=== PATIENT | male | born 1945 | race Caucasian/White ===

== ENCOUNTER 2017-10-25 16:40 | Emergency (ER) | payer MEDICARE, OTHER, SELFPAY ==
[2017-10-25 16:52] VITALS: BP 179/98; PULSE 80; RESP 11; TEMP 36.4; O2SAT 97; BMI 30.5
--- NOTE | 2017-10-25 16:52 | ED_ITS ---
HPI - Syncope General Chief Complaint: Syncope Stated Complaint: STATES I THINK I'VE HAD A HEART ATTACK OR STROKE Time Seen by Provider: 10/25/17 16:50 Source: patient Mode of arrival: ambulatory Limitations: no limitations History of Present Illness HPI narrative: Patient is a 72-year-old rzt-jdzlzjs-wokswropa diabetic male here for evaluation for an episode that occurred approximately noon today. Patient states that he was working in his bathroom on some plumbing. He states that he walked back in the bathroom to check for any leaks and he got a sudden onset of vertigo. States that was non positional. States that the time he does not know whether not he had any chest pain or palpitations because he was focused on room spending. Became nauseous with it. States that he is unsure exactly how long the whole situation lasted. He states he was able to make it to his bed and laid down. His was a nurse took his blood pressure which was in the 150s/160 systolic which he states is high for him. Says that the vertigo improved somewhat however he still did not feel very well. Took his blood sugar at home and it was just above 200. He states that he went into the living room and sat down in a chair. Took a nap. Woke up from the nap and then as he was walking around still did not feel very well. Did not have any further vertigo. States he was not having chest pain or shortness of breath but just did not feel well. Here in the emergency department approximately 5 hr after the onset of his symptoms he reports that he is feeling approximately 40% better. Related Data Home Medications Medication Instructions Recorded Confirmed aspirin 81 mg PO DAILY #0 02/29/16 10/25/17 naproxen sodium [Aleve] 220 mg PO BID PRN #0 03/01/16 10/25/17 Vitamin B-12 1 tab PO DAILY 10/25/17 10/25/17 liraglutide [Victoza 2-Inocencio] 1.8 mg SUB-Q DAILY 10/25/17 10/25/17 magnesium oxide 400 mg PO DAILY 10/25/17 10/25/17 metformin 1,000 mg PO BID 10/25/17 10/25/17 Allergies Allergy/AdvReac Type Severity Reaction Status Date / Time No Known Drug Allergies Allergy Verified 10/25/17 16:52 Review of Systems Constitutional Reports chills, Reports fatigue, Denies fever(s), Denies headache(s) and Denies lethargy Eyes Denies blurry vision, Denies diplopia and Denies loss of vision ENT Ears, Nose, Mouth, and Throat: Reports vertigo, Reports dizziness, Denies facial pain, Denies headache(s) and Denies sore throat Cardiovascular Denies chest pain, Reports diaphoresis, Denies syncope, Denies irregular heart rhythm, Denies palpitations and Reports dyspnea Respiratory Denies cough and Reports dyspnea Gastrointestinal Gastrointestinal: Denies abdominal pain, Denies nausea and Reports vomiting Genitourinary Denies dysuria and Denies urinary urgency Musculoskeletal Denies myalgias, Denies arthralgias, Denies joint swelling, Reports muscle cramps, Denies muscle weakness and Denies numbness Integumentary/Breasts Denies new lesions and Denies rash Neurologic Denies abnormal speech, Reports behavioral changes, Reports confusion, Reports vertigo, Reports dizziness, Denies syncope, Denies headache(s), Reports lack of coordination, Denies focal weakness, Denies loss of vision and Denies numbness Psychiatric Reports behavioral changes and Reports confusion Endocrine Reports fatigue and Denies palpitations Hematologic/Lymphatic Denies easy bleeding and Denies easy bruising Exam Initial Vital Signs Initial Vital Signs: Vital Signs Temperature 97.6 F 10/25/17 16:52 Pulse Rate 80 10/25/17 16:52 Respiratory Rate 11 L 10/25/17 16:52 Blood Pressure 179/98 H 10/25/17 16:52 Pulse Oximetry 97 10/25/17 16:52 Const General: cooperative, healthy appearing, comfortable, well developed, well groomed and No acute distress Orientation: alert, awake and oriented x3 [facility] Head: normal to inspection, normocephalic and atraumatic Eyes Pupils: PERRL EOM: EOM intact bilaterally Chest Chest: normal inspection of the chest and normal palpation of entire chest wall Resp Effort & Inspection: normal respiratory effort Auscultation: clear to auscultation bilaterally Cardio Rate: regular rate Rhythm: regular rhythm Heart Sounds: no murmurs GI Inspection: normal to inspection and non-distended Palpation: soft, No firm and No guarding Back/Spine/Pelvis Back: No CVA tenderness Skin Lesions: no lesions Rashes: no rashes Neuro General: alert, awake and oriented x3 Cranial Nerves: CN's II-XI intact bilaterally Cognition: normal cognition Speech: speech normal Motor: muscle tone normal throughout Sensory Exam: no sensory deficits noted Extrem General: normal to inspection and capillary refill normal Psych Appearance: grossly normal and well kempt Course Orders Ordered: ED Orders 10/25/17 16:53 EKG-12 Lead Stat 10/25/17 17:00 Complete Blood Count AUTO DIFF Stat Comprehensive Metabolic Panel Stat Lipase Stat Troponin I Stat 10/25/17 17:10 CT head/brain wo con Stat Discontinued Medications Sodium Chloride (Normal Saline 0.9%) 1,000 mls @ 1,000 mls/hr IV BOLUS ONE Stop: 10/25/17 18:08 Last Admin: 10/25/17 17:15 Dose: 1,000 mls/hr Vital Signs - 8 hr 10/25/17 16:52 Temperature 97.6 F Pulse Rate 80 Respiratory Rate 11 L Blood Pressure 179/98 H Pulse Oximetry 97 MDM - Syncope Lab Data Attestation: I reviewed the patient's lab results. Result diagrams: 10/25/17 17:00 10/25/17 17:00 Lab Results 10/25/17 10/25/17 Range/Units 17:00 17:00 WBC 9.5 (4.5-11.0) X10^3/uL RBC 4.97 (4.5-5.9) X10^6/uL Hgb 14.6 (13.5-17.5) g/dL Hct 42.8 (41-53) % MCV 86.1 (80-100) fL MCH 29.5 (26-34) PG MCHC 34.2 (30-36) % RDW 13.0 (11.6-14.8) % Plt Count 150 (150-400) X10^3/uL Neut % (Auto) 71.7 (50-75) % Lymph % (Auto) 22.5 L (25-40) % [place] % (Auto) 5.0 (3-14) % Eos % (Auto) 0.4 L (2-4) % Baso % (Auto) 0.4 (0-2) % Neut # (Auto) 6800 H (5932-8004) /uL Sodium 138 (137-145) mmol/L Potassium 4.4 (3.4-5.1) mmol/L Chloride 99 (98-107) mmol/L Carbon Dioxide 25 (22-32) mmol/L BUN 19 (9-20) mg/dL Creatinine 1.20 (0.66-1.25) mg/dL Estimated GFR 59.5 L (>60) mL/min BUN/Creatinine Ratio 15.8 (6-22) Glucose 159 H (80-110) mg/dL Calcium 9.7 (8.4-10.2) mg/dL Total Bilirubin 0.5 (0.2-1.3) mg/dL AST 20 (17-59) IU/L ALT 26 (21-72) IU/L Alkaline Phosphatase 70 (38-126) U/L Troponin I 0.054 H (0.01-0.034) ng/mL Total Protein 8.0 (6.3-8.2) g/dL Albumin 4.7 (3.5-5.0) g/dL Globulin 3.3 (1.7-4.1) g/dL Albumin/Globulin Ratio 1.4 (1.0-2.8) Lipase 44 (23-300) U/L Imaging Data CT scan - head: Radiologist's impression: PROCEDURE: CT HEAD/BRAIN WO CON INDICATIONS: Vertigo TECHNIQUE: Noncontrast 4.5 mm thick angled axial sections acquired from the foramen magnum to the vertex, with coronal and sagittal reformats. For radiation dose reduction, the following was used: automated exposure control, adjustment of mA and/or kV according to patient size. COMPARISON: [facility], MR, STROKE PROTOCOL, 03/01/2016, 10:59. [facility], CT, HEAD WITHOUT CONTRAST, 02/29/2016, 20:20. FINDINGS: Image quality: Excellent. CSF spaces: Basal cisterns are patent. No extra-axial fluid collections. The ventricles are symmetric in size and shape. Brain: No intracranial bleeds or masses. There is mild cerebral volume loss for age, with resultant ventricular and sulcal prominence. There are mild periventricular and deep white matter chronic small vessel ischemic changes. There is intracranial internal carotid artery atherosclerosis. Skull and face: Calvarium and visualized facial bones appear intact, without suspicious lesions. Sinuses: Visualized sinuses and mastoids are clear. IMPRESSION: 1. No acute intracranial abnormalities. 2. Cerebral volume loss and chronic microvascular ischemic changes. Dictated by: Sukhdeep Kebede M.D. on 10/25/2017 at 17:26 Approved by: Sukhdeep Kebede M.D. on 10/25/2017 at 17:28 ECG Data Attestation: I personally reviewed and interpreted this ECG as follows: Prior ECG tracings: not available for review Interpretation: Sinus rhythm Ventricular rate is 79 Normal axis Normal QRS Normal QTC No ST T wave changes MDM Narrative Medical decision making narrative: Patient with a negative head CT. Nonischemic EKG. Labs unremarkable except for a slightly elevated troponin. Patient did have a full aspirin prior to arrival here in the ER. Patient never described any chest pain however does describe generalized fatigue and overall not feeling very well. Given this in the setting of a diabetic individual of his age and the elevated troponin there is concern for ACS. Discussed the case with at [facility] who accepts the patient in transfer. Patient is stable for transfer. I did discussed the transfer with the patient and a friend who is at bedside and also with his over the phone. They expressed understanding and agreement with plan. I feel given his neurologic symptoms here in the emergency department that a CVA/TIA is unlikely. Discharge Plan Departure Patient Disposition: Home, Self-Care Clinical Impression: Non-ST elevation [place] (NSTEMI), Hypertension, Vertigo Prescriptions: No Action aspirin 81 MG tablet,delayed release (DR/EC) 81 mg PO DAILY Qty: 0 RF: 0 naproxen sodium [Aleve] 220 MG capsule 220 mg PO BID PRN (Reason: Pain, Mild) Qty: 0 RF: 0 magnesium oxide 400 mg Tablet 400 mg PO DAILY RF: 0 metformin 1,000 mg Tablet 1,000 mg PO BID RF: 0 liraglutide [Victoza 2-Inocencio] 0.6 mg/0.1 mL (18 mg/3 mL) Pen Injector 1.8 mg Sub-Q DAILY RF: 0 Vitamin B-12 1 tab PO DAILY RF: 0
[2017-10-25 17:07] LABS: Add Manual Diff / Slide Review NO; Basophils Percent Auto 0.4 % (0-2); Eosinophils Percent Auto 0.4 % (2-4); Hematocrit 42.8 % (41-53); Hemoglobin 14.6 g/dL (13.5-17.5); Lymphocytes Percent Auto 22.5 % (25-40); Mean Corpuscular HGB Conc 34.2 % (30-36); Mean Corpuscular Hemoglobin 29.5 PG (26-34); Mean Corpuscular Volume 86.1 fL (80-100); Neutrophils Absolute Auto 6800 /uL (3000-5900); Neutrophils Percent Auto 71.7 % (50-75); Platelet Count 150 X10^3/uL (150-400); Red Blood Cell Count 4.97 X10^6/uL (4.5-5.9); White Blood Cell Count 9.5 X10^3/uL (4.5-11.0)
--- NOTE | 2017-10-25 17:10 | DI.CT.S_ITS ---
PROCEDURE: CT HEAD/BRAIN WO CON INDICATIONS: Vertigo TECHNIQUE: Noncontrast 4.5 mm thick angled axial sections acquired from the foramen magnum to the vertex, with coronal and sagittal reformats. For radiation dose reduction, the following was used: automated exposure control, adjustment of mA and/or kV according to patient size. COMPARISON: [facility], MR, STROKE PROTOCOL, 03/01/2016, 10:59. [facility], CT, HEAD WITHOUT CONTRAST, 02/29/2016, 20:20. FINDINGS: Image quality: Excellent. CSF spaces: Basal cisterns are patent. No extra-axial fluid collections. The ventricles are symmetric in size and shape. Brain: No intracranial bleeds or masses. There is mild cerebral volume loss for age, with resultant ventricular and sulcal prominence. There are mild periventricular and deep white matter chronic small vessel ischemic changes. There is intracranial internal carotid artery atherosclerosis. Skull and face: Calvarium and visualized facial bones appear intact, without suspicious lesions. Sinuses: Visualized sinuses and mastoids are clear. IMPRESSION: 1. No acute intracranial abnormalities. 2. Cerebral volume loss and chronic microvascular ischemic changes. Dictated by: Sukhdeep Kebede M.D. on 10/25/2017 at 17:26 Approved by: Sukhdeep Kebede M.D. on 10/25/2017 at 17:28
[2017-10-25] MEDS: SODIUM CHLORIDE 0.9% 1,000 ML 1000 ML IV (17:15)
[2017-10-25 17:19] LABS: Alanine Aminotransferase 26 IU/L (21-72); Albumin 4.7 g/dL (3.5-5.0); Albumin Globulin Ratio 1.4 (1.0-2.8); Alkaline Phosphatase 70 U/L (38-126); Aspartate Aminotransferase 20 IU/L (17-59); BUN Creatinine Ratio 15.8 (6-22); Bilirubin Total 0.5 mg/dL (0.2-1.3); Blood Urea Nitrogen 19 mg/dL (9-20); Calcium 9.7 mg/dL (8.4-10.2); Carbon Dioxide 25 mmol/L (22-32); Chloride 99 mmol/L (98-107); Estimated Glomerular Filt Rate 59.5 mL/min (>60); Globulin 3.3 g/dL (1.7-4.1); Glucose 159 mg/dL (80-110); HEMOLYSIS < 15 (0-50); Lipase 44 U/L (23-300); Potassium 4.4 mmol/L (3.4-5.1); Sodium 138 mmol/L (137-145)
[2017-10-25 17:31] LABS: Troponin I 0.054 ng/mL (0.01-0.034)
[2017-10-25 21:27] VITALS: BP 125/87; PULSE 89; RESP 17; O2SAT 95
== END 2017-10-25 21:30 | disposition short-term general hospital (02) ==
PROVIDERS: Emergency Provider Emergency Medicine; Family Provider Family Medicine; PCP Family Medicine
DX: I21.4 Non-ST elevation (NSTEMI) myocardial infarction (principal); I10 Essential (primary) hypertension; R42 Dizziness and giddiness
CPT/HCPCS: 36591; 70450; 80053; 82962; 83690; 84484; 85025; 93005; 96360; 99283; 99285

== ENCOUNTER → 2020-05-09 11:04 | Outpatient (CLI) | payer MEDICARE, OTHER, SELFPAY ==
--- NOTE | 2020-05-09 | DI.RAD.S_ITS ---
PROCEDURE: XR LUMBAR SPINE 2-3V INDICATIONS: Lower back pain. TECHNIQUE: 3 views of the lumbar spine were acquired. COMPARISON: [facility], CT, CT-IVP, 09/01/2010, 8:59. FINDINGS: Bones: Mild T12 compression fracture. Right remaining vertebral body heights grossly preserved. Multilevel degenerative endplate sclerosis and spurring. Diffuse facet arthropathy. Grade 1 anterolisthesis of L4 on L5. Moderate narrowing of the L5-S1 disc space and mild narrowing of the remaining lumbar disc spaces. Mild dextrocurvature. Mild bilateral hip joint degeneration. Bilateral sacroiliac sclerosis and spurring. Soft tissues: Overlying bowel gas pattern is normal. No suspicious soft tissue calcifications. Scattered vascular calcifications seen in the aorta. IMPRESSION: Diffuse lumbar spondylosis and grade 1 anterolisthesis of L4 on L5. Facet arthropathy Age-indeterminate mild T12 compression fracture. Mild dextrocurvature Dictated by: Andre Taylor M.D. on 05/09/2020 at 13:27 Approved by: Andre Taylor M.D. on 05/09/2020 at 13:30
== END ==
PROVIDERS: Family Provider Family Medicine; PCP Family Medicine; Referring Provider Physician Assistant; Visit Provider Physician Assistant
DX: M54.5 Low back pain (principal); M99.04 Segmental and somatic dysfunction of sacral region; M99.03 Segmental and somatic dysfunction of lumbar region; M47.816 Spondylosis without myelopathy or radiculopathy, lumbar region; M43.16 Spondylolisthesis, lumbar region; M16.0 Bilateral primary osteoarthritis of hip; M48.54XA Collapsed vertebra, not elsewhere classified, thoracic region, initial encounter for fracture
CPT/HCPCS: 72100

== ENCOUNTER → 2020-07-20 14:29 | Outpatient (CLI) | payer MEDICARE, OTHER, SELFPAY ==
--- NOTE | 2020-07-20 14:34 | DI.RAD.S_ITS ---
PROCEDURE: XR KNEE LT 3V INDICATIONS: left knee pain TECHNIQUE: 3 views of the knee were acquired. COMPARISON: None. FINDINGS: Bones: No acute fractures or dislocations. No suspicious bony lesions. There is minimal narrowing of the medial and anterior compartment joint spaces. Soft tissues: No joint effusion. No suspicious soft tissue calcifications. Arterial vascular calcifications are present. IMPRESSION: No acute osseous abnormality. Minimal osteoarthrosis. If the symptoms persist with conservative management, consider cross sectional imaging such as CT or MRI for further assessment. Dictated by: Geoff Amaya M.D. on 07/20/2020 at 17:09 Approved by: Geoff Amaya M.D. on 07/20/2020 at 17:11
== END ==
PROVIDERS: Family Provider Family Medicine; PCP Family Medicine; Referring Provider Physician Assistant Medical; Visit Provider Physician Assistant Medical
DX: M25.562 Pain in left knee (principal)
CPT/HCPCS: 73562

== ENCOUNTER → 2020-10-27 09:44 | Outpatient (CLI) | payer OTHER, SELFPAY ==
--- NOTE | 2020-10-27 | DI.MRI.S_ITS ---
PROCEDURE: MR HEAD/BRAIN WO CON INDICATIONS: imbalance TECHNIQUE: Non-contrast axial T1 spin echo, axial T2 fast spin echo, sagittal and axial FLAIR, coronal T2 fast spin echo, axial gradient echo, axial diffusion and ADC through the brain. COMPARISON: [facility], CT, CT HEAD/BRAIN WO CON, 10/25/2017, 17:07. FINDINGS: Cerebrum, Cerebellum and Brainstem: Mild cerebral and cerebellar volume loss as well as moderate multifocal hyperintensities in the deep and subcortical white matter present. The diffusion sequence is normal without evidence of acute infarct. No intracranial hemorrhage, mass lesion or midline shift. Basal cisterns and foramen magnum contain appropriate anatomy and vascular flow voids. No evidence of dural or leptomeningeal thickening. Ventricles: Appropriate in size and position. No hydrocephalus. Skull Base: The bony sella, pituitary gland and infundibulum unremarkable. Clivus and craniovertebral relationships are appropriate. Visualized portions of the seventh and eighth cranial nerve complexes and internal auditory canals are within normal limits. Scalp and Calvarium: The scalp is unremarkable. Underlying calvarium has an appropriate marrow signal. Paranasal Sinuses: Visualized portions of the paranasal sinuses are clear. Mastoids: Unremarkable as visualized. No mastoid effusion present. Orbits: The orbits, globes and ocular muscles are unremarkable. IMPRESSION: Atrophy and chronic ischemic change without acute hemorrhage, infarct or mass lesion. Dictated by: Arvind Caballreo M.D. on 10/27/2020 at 12:15 Approved by: Arvind Caballero M.D. on 10/27/2020 at 12:39
== END ==
PROVIDERS: Family Provider Family Medicine; PCP Family Medicine; Referring Provider Internal Medicine; Visit Provider Internal Medicine
DX: R26.89 Other abnormalities of gait and mobility (principal); Z86.73 Personal history of transient ischemic attack (TIA), and cerebral infarction without residual deficits
CPT/HCPCS: 70551

== ENCOUNTER → 2021-05-04 09:50 | Outpatient (CLI) | payer MEDICARE, OTHER, SELFPAY ==
[2021-05-04 10:52] LABS: COVID19 -Nasal RAPID Negative (Negative)
--- NOTE | 2021-05-04 20:15 | DI.NM.S_ITS ---
DATE OF SERVICE: 05/04/2021 PROCEDURE: Exercise perfusion study. INDICATION: Exertional shortness of breath with known history of CAD, status post PCI and a Cordis stent placement to the mid LAD, distal LAD and PCI of diagonal in November,, with underlying diabetes mellitus, hyperlipidemia. RADIOPHARMACEUTICAL: 25.1 millicurie technetium-99m Myoview IV was injected at stress and 12.2 millicurie technetium-99m Myoview IV was injected at rest. CARDIAC STRESS: The patient initially attempted to walk on the treadmill. He walked on the treadmill under the supervision of an attending staff for about 4 minutes and 10 seconds, however, felt shortness of breath and leg fatigue. Maximum heart rate achieved 112, which was 77 percent of target heart rate. Baseline blood pressure was 132/84 and peak blood pressure 152/84. At that time, exercise stress test was discontinued. It was switched to pharmacological perfusion stress test. The patient was given intravenous Lexiscan, as per protocol. He remained hemodynamically stable. No angina. No chest pain. Baseline rhythm was sinus with right bundle branch block. During stress and Lexiscan, there were some nonspecific ST-T changes. There was diffuse T-wave inversion with Lexiscan. Prior to that, there was no T-wave inversion in limb leads and lateral leads. No other significant sustained arrhythmias. RAW DATA: There is increased subdiaphragmatic activity. GATED STUDY: Resting LV ejection fraction 66 percent and stress LV ejection fraction 72 percent. Resting end-diastolic volume 85 mL. No obvious wall motion abnormalities. TID ratio 1.02, which is within normal limits. Lung/heart ratio 0.33, which is within normal limits. MYOCARDIAL PERFUSION SCAN: Stress supine and resting supine images revealed small size, mildly decreased perfusion of inferior wall, which got completely resolved during stress prone images, suggestive of diaphragmatic tissue attenuation artifact. Stress prone images revealed normal myocardial perfusion. CONCLUSION: I will call this study a normal myocardial perfusion study with evidence of diaphragmatic tissue attenuation artifact, which got resolved during prone images. The stress left ventricular ejection fraction 72 percent. No transient ischemic dilatation. Poor exercise tolerance. Baseline sinus rhythm with right bundle branch block. During stress, nonspecific ST changes. The patient felt dyspnea and leg fatigue. No obvious chest pain. As far as perfusion scan is concerned, this is a low-risk myocardial perfusion scan. Correlate clinically. Edilson Zapata - CHRIS/alpesh/chun doc#: [id number]/job#: [id number] dd: 05/04/2021 18:01:00 dt: 05/04/2021 19:44:00 DICTATING /COPIES TO: Casa Arceo MD COPIES MNE: ERLIN;
== END ==
PROVIDERS: Family Provider Family Medicine; PCP Family Medicine; Referring Provider Internal Medicine Cardiovascular Disease; Visit Provider Internal Medicine Cardiovascular Disease
DX: I25.10 Atherosclerotic heart disease of native coronary artery without angina pectoris (principal); R06.02 Shortness of breath; E11.9 Type 2 diabetes mellitus without complications; E78.5 Hyperlipidemia, unspecified; Z20.822 Contact with and (suspected) exposure to COVID-19; Z95.5 Presence of coronary angioplasty implant and graft
CPT/HCPCS: 78452; 87635; 93017; A9502; J2785

== ENCOUNTER 2021-05-30 08:30 | Emergency (ER) | payer MEDICARE, OTHER, SELFPAY ==
[2021-05-30] VITALS (13 sets, daily range): BP systolic 130–161; BP diastolic 60–85; PULSE 68–77; RESP 15–21; TEMP 36.6; O2SAT 95–97
--- NOTE | 2021-05-30 08:39 | DI.RAD.S_ITS ---
PROCEDURE: XR CHEST 1V INDICATIONS: chest pain TECHNIQUE: One view of the chest was acquired. COMPARISON: [facility], , CHEST 1 VIEW, 02/29/2016, 20:22. FINDINGS: Surgical changes and devices: Left shoulder prosthesis is demonstrated. Lungs and pleura: There is pulmonary vascular prominence suggestive of mild edema. There is indistinct appearance of the right lateral costophrenic angle which may represent a small pleural effusion versus atelectasis. No pneumothorax. Mediastinum: Mediastinal contours appear unchanged. Heart size is borderline enlarged. Bones and chest wall: No suspicious bony lesions. Overlying soft tissues appear unremarkable. IMPRESSION: 1. Pulmonary vascular prominence suggestive of mild edema. Dictated by: Bart Lopez M.D. on 05/30/2021 at 9:03 Approved by: Bart Lopez M.D. on 05/30/2021 at 9:04
--- NOTE | 2021-05-30 08:48 | ED.WEAKNESS ---
HPI - Weakness General Chief complaint: Recheck/Abnormal Lab/Rx Stated complaint: Potassium extremely high Time Seen by Provider: 05/30/21 08:42 History of Present Illness HPI Narrative: 75-year-old male nonsmoker with cardiac history presents with his in the chief complaint of abnormal labs and request by cardiology to come CS. He had outpatient labs on Saturday and apparently his potassium and creatinine were significantly high. He was encouraged to come CS. He denies any symptoms such as dizziness, weakness or lightheadedness. Denies chest pain or shortness of breath. He denies any unexplained fatigue, muscle cramping, weight loss or other. He denies any recent changes medications or diet. Related Data Home Medications Medication Instructions Recorded Confirmed aspirin 81 mg tablet,delayed 81 mg PO DAILY #0 02/29/16 10/25/17 release naproxen sodium 220 mg capsule 220 mg PO BID PRN #0 03/01/16 10/25/17 (Aleve) Vitamin B-12 1 tab PO DAILY 10/25/17 10/25/17 liraglutide 0.6 mg/0.1 mL (18 mg/3 1.8 mg SUB-Q DAILY 10/25/17 10/25/17 mL) subcutaneous pen injector (Victoza 2-Inocencio) magnesium oxide 400 mg (241.3 mg 400 mg PO DAILY 10/25/17 10/25/17 magnesium) tablet metformin 1,000 mg tablet 1,000 mg PO BID 10/25/17 10/25/17 Allergies Allergy/AdvReac Type Severity Reaction Status Date / Time No Known Drug Allergies Allergy Verified 10/25/17 16:52 Review of Systems Review of Systems Narrative: GENERAL: Denies chills, fatigue, malaise, fever, sweats. HEENT: Denies sinus pain, ear pain, sore throat, difficulty swallowing, dizziness. RESPIRATORY: Denies dyspnea, cough, wheezing, hemoptysis, sputum. CARDIOVASCULAR: Denies chest pain, palpitations, orthopnea, edema, GASTROINTESTINAL: Denies nausea, vomiting, abdominal pain, diarrhea, constipation, melena. : Denies dysuria, frequency, incontinence, hematuria, urinary retention. MUSCULOSKELETAL: denies weakness, joint pain, or bony pain SKIN: Denies rash, skin lesions, or other NEUROLOGIC: Denies weakness, headache, numbness, change in speech, confusion, seizures, incoordination. PSYCHIATRIC: No concerning psychosocial issues. 12 point review of systems is negative except for those stated above Patient History Social History Smoking Status: Never smoker Exam Narrative Exam Narrative: GENERAL: [75] year old patient appears stated age. Well-developed patient, in mild distress. HEAD: Atraumatic. Normocephalic. EYES: Pupils equal round and reactive. Extraocular motions intact. No scleral icterus. No injection or drainage. ENT: Nose without bleeding, purulent drainage. Throat without erythema, tonsillar hypertrophy or exudate. Airway patent. NECK: Trachea midline. Non tender CARDIOVASCULAR: Regular rate and rhythm without murmurs, gallops, or rubs. RESPIRATORY: Clear to auscultation. Breath sounds equal bilaterally. No wheezes, rales, or rhonchi. GASTROINTESTINAL: Abdomen soft, non-tender, nondistended. EXTREMITIES: No edema or joint tenderness. BACK: Nontender without deformity or crepitance. No flank tenderness. NEURO: AOx3. SKIN: No rash or erythema of visible areas Initial Vital Signs Initial Vital Signs: Vital Signs Pulse Rate 77 05/30/21 08:44 Respiratory Rate 18 05/30/21 08:44 Pulse Oximetry 97 05/30/21 08:44 Course Orders Ordered: Discontinued Medications Sodium Chloride (Normal Saline 0.9%) 1,000 mls @ 1,000 mls/hr IV BOLUS ONE Stop: 05/30/21 10:20 Last Infusion: 05/30/21 11:48 Dose: 0 mls/hr Documented by: Admin: 05/30/21 09:37 Dose: 1,000 mls/hr Documented by: TOBIN Vital Signs Vital signs: Vital Signs - 8 hr 05/30/21 08:44 05/30/21 08:55 05/30/21 09:00 Temperature 97.8 F Pulse Rate 77 75 75 Respiratory Rate 18 16 21 Blood Pressure 148/80 H 148/80 H Pulse Oximetry 97 96 96 05/30/21 09:30 05/30/21 10:00 05/30/21 10:30 Temperature Pulse Rate 75 76 71 Respiratory Rate 15 19 Blood Pressure 130/60 147/85 H 156/83 H Pulse Oximetry 95 96 95 05/30/21 10:45 05/30/21 10:46 05/30/21 11:00 Temperature Pulse Rate 68 68 68 Respiratory Rate Blood Pressure 130/68 131/70 149/79 H Pulse Oximetry 96 MDM - Weakness Lab Data Result diagrams: 05/30/21 08:48 05/30/21 10:47 Labs: Lab Results 05/30/21 05/30/21 05/30/21 Range/Units 08:48 08:48 10:27 WBC 8.1 (4.5-11.0) X10^3/uL RBC 4.96 (4.5-5.9) X10^6/uL Hgb 13.8 (13.5-17.5) g/dL Hct 41.4 (41-53) % MCV 83.4 (80-100) fL MCH 27.8 (26-34) PG MCHC 33.3 (30-36) % RDW 12.9 (11.6-14.8) % Plt Count 149 L (150-400) X10^3/uL Neut % (Auto) 62.8 (50-75) % Lymph % (Auto) 26.7 (25-40) % Island % (Auto) 7.9 (3-14) % Eos % (Auto) 2.0 (2-4) % Baso % (Auto) 0.6 (0-2) % Neut # (Auto) 5100 (1243-0412) /uL Lymph # (Auto) 2200 (3300-3288) /uL Island # (Auto) 600 (0-900) /uL Eos # (Auto) 200 (0-450) /uL Baso # (Auto) 100 (0-100) /uL Sodium 138 (137-145) mmol/L Potassium 4.7 (3.4-5.1) mmol/L Chloride 100 (98-107) mmol/L Carbon Dioxide 28 (22-32) mmol/L BUN 18 (9-20) mg/dL Creatinine 1.45 H (0.66-1.25) mg/dL Estimated GFR 47.4 L (>60) mL/min BUN/Creatinine Ratio 12.4 (6-22) Glucose 184 H (80-110) mg/dL Calcium 9.7 (8.4-10.2) mg/dL Magnesium 1.7 (1.6-2.3) mg/dL Total Bilirubin 0.8 (0.2-1.3) mg/dL AST 27 (17-59) IU/L ALT 22 (<50) IU/L Alkaline Phosphatase 59 (38-126) U/L Total Creatine Kinase 68 (55-170) U/L CK-MB (CK-2) TNP CK-MB (CK-2) Rel Index TNP Troponin I 0.015 (0.01-0.034) ng/mL Total Protein 8.1 (6.3-8.2) g/dL Albumin 4.7 (3.5-5.0) g/dL Globulin 3.4 (1.7-4.1) g/dL Albumin/Globulin Ratio 1.4 (1.0-2.8) Lipase 38 (23-300) U/L Urine RBC None seen (0-5/HPF) Urine WBC None seen (0-5/HPF) Urine Bacteria None seen (None) Ur Culture Indicated? Cult not indicated Micro UA Comment Microscopic normal Ur Random Sodium (30-90) mmol/L Urine Creatinine mg/dL 05/30/21 05/30/21 Range/Units 10:47 11:27 WBC (4.5-11.0) X10^3/uL RBC (4.5-5.9) X10^6/uL Hgb (13.5-17.5) g/dL Hct (41-53) % MCV (80-100) fL MCH (26-34) PG MCHC (30-36) % RDW (11.6-14.8) % Plt Count (150-400) X10^3/uL Neut % (Auto) (50-75) % Lymph % (Auto) (25-40) % Island % (Auto) (3-14) % Eos % (Auto) (2-4) % Baso % (Auto) (0-2) % Neut # (Auto) (8777-4840) /uL Lymph # (Auto) (7165-1372) /uL Island # (Auto) (0-900) /uL Eos # (Auto) (0-450) /uL Baso # (Auto) (0-100) /uL Sodium 137 (137-145) mmol/L Potassium 4.6 (3.4-5.1) mmol/L Chloride 102 (98-107) mmol/L Carbon Dioxide 26 (22-32) mmol/L BUN 18 (9-20) mg/dL Creatinine 1.39 H (0.66-1.25) mg/dL Estimated GFR 49.8 L (>60) mL/min BUN/Creatinine Ratio 12.9 (6-22) Glucose 148 H (80-110) mg/dL Calcium 9.1 (8.4-10.2) mg/dL Magnesium (1.6-2.3) mg/dL Total Bilirubin (0.2-1.3) mg/dL AST (17-59) IU/L ALT (<50) IU/L Alkaline Phosphatase (38-126) U/L Total Creatine Kinase (55-170) U/L CK-MB (CK-2) CK-MB (CK-2) Rel Index Troponin I (0.01-0.034) ng/mL Total Protein (6.3-8.2) g/dL Albumin (3.5-5.0) g/dL Globulin (1.7-4.1) g/dL Albumin/Globulin Ratio (1.0-2.8) Lipase (23-300) U/L Urine RBC (0-5/HPF) Urine WBC (0-5/HPF) Urine Bacteria (None) Ur Culture Indicated? Micro UA Comment Ur Random Sodium 137 H (30-90) mmol/L Urine Creatinine 118.9 mg/dL Urine Dip Bedside Urine Glucose Negative Bedside Urine Bilirubin - Negative Bedside Urine Ketone - Negative Urine Specific [place] 1.030 Bedside Urine Occult Blood - Negative Bedside Urine pH 6.0 Bedside Urine Protein + 30 Bedside Urine Urobilinogen - Negative Bedside Urine Nitrite - Negative Bedside Urine Leukocytes - Negative Esterase Imaging Data Renal US: Radiologist Impression: Edilson Zapata??75??M??1945 ? Allergy/Adv: No Known Drug Allergies Close Renal Ultrasound (Signed) Arvind Caballero - 05/30/21 Chest X-Ray (Signed) Bart Lopez - 05/30/21 Radiology Report (Cancelled) [facility] - 05/04/21 Myocardial Perfusion Scan Nuc Med (Signed) Kasey Arceou - 05/04/21 Brain MRI (Signed) Arvind Caballero - 10/27/20 Knee X-Ray (Signed) Geoff Amaya - 07/20/20 Lumbar Spine X-Ray (Signed) Andre Taylor - 05/09/[address] (Signed) Priscilla Kebede - 10/25/17 Radiology - Historical 02/29/16 Radiology - Historical 02/29/16 Radiology - Historical 02/29/16 Launch?[address] [address] Ultrasound Report Signed Patient: Edilson Zapata MR#: [id number] : 1945 Acct:[id number] Age/Sex: 75 / M Date of Service: 05/30/21 Loc: ED Accession Number: [id number] ?? Procedure: US renal complete Ordering Provider: Kendall Amezcua D.O. PROCEDURE:? US RENAL COMPLETE ? INDICATIONS:? ACUTE RENAL FAILURE ? TECHNIQUE:? Real-time scanning was performed of the kidneys and bladder, with image documentation.? ? COMPARISON:? None. ? FINDINGS:? ? Kidneys:? Kidneys are normal in size.? Right kidney measures 12.9 cm long; left kidney measures 12.6 cm long.? Right renal cortical thickness is 2.0 cm; left renal cortical thickness is 1.5 cm.? Renal cortical echotexture is normal.? Bilateral renal cysts are noted, largest on the left measures 4.1 cm No hydronephrosis or nephrolithiasis.? No suspicious solid mass lesions.? ? Bladder:? Nondistended ? Miscellaneous:? No free pelvic fluid.? ? IMPRESSION:? ? Bilateral renal cysts.? No hydronephrosis. ? ? ? Approved by: Arvind Caballero M.D. on 05/30/2021 at 9:34? [facility] Narrative Medical decision making narrative: Patient has a very reassuring history and physical exam. He is asymptomatic over the course of the weekend and for the duration of the visit. He demonstrates no EKG changes and at no point is hyperkalemic in the department. He does have some subtle change in his renal function as demonstrated by slightly elevated creatinine. This is improved somewhat after IV hydration. He is given extensive return precautions and questions have been answered to his apparent satisfaction Discharge Plan Departure Patient Disposition: Home Clinical Impression: Kidney injury Activity Restrictions/Additional Instructions: *You have been diagnosed with [acute on chronic kidney injury. Thankfully your labs today are very reassuring and there is no elevation in your potassium. You have been given some fluids and your kidney function has improved. There is no indication of a need *What to do: *Please continue to take your reg for immediate intervention medications as directed. [ ] New medication prescriptions sent to your pharmacy: [ ] [ ] New medication written as a paper prescription [x ] No new medications given *Please follow up with your primary care provider in 2-3 days, call for an appointment. Let them know you were seen in the Emergency Department and that we ask that you be seen in follow up. We will electronically transmit a record of today's note if your PCP is in our system *If you do not have a primary care provider please contact the [facility] Resource line at [phone]. They will ask some questions about your medical history and help get you set up with a doctor in the community. *Return to Emergency Department if you should have any new, worsening or concerning symptoms, such as [fever greater than 101 F, shaking chills, worsening pain, persistent vomiting or other bothersome symptoms] Prescriptions: No Action aspirin 81 MG tablet,delayed release (DR/EC) 81 mg PO DAILY Qty: 0 0RF naproxen sodium [Aleve] 220 MG capsule 220 mg PO BID PRN (Reason: Pain, Mild) Qty: 0 0RF magnesium oxide 400 mg Tablet 400 mg PO DAILY 0RF metformin 1,000 mg Tablet 1,000 mg PO BID 0RF liraglutide [Victoza 2-Inocencio] 0.6 mg/0.1 mL (18 mg/3 mL) Pen Injector 1.8 mg Sub-Q DAILY 0RF Vitamin B-12 1 tab PO DAILY 0RF Referrals: Leo Painting MD [Primary Care Provider] -
[2021-05-30 08:56] LABS: Add Manual Diff / Slide Review NO; Basophils Absolute Auto 100 /uL (0-100); Basophils Percent Auto 0.6 % (0-2); Eosinophils Absolute Auto 200 /uL (0-450); Hematocrit 41.4 % (41-53); Hemoglobin 13.8 g/dL (13.5-17.5); Lymphocytes Absolute Auto 2200 /uL (1100-4500); Lymphocytes Percent Auto 26.7 % (25-40); Mean Corpuscular HGB Conc 33.3 % (30-36); Mean Corpuscular Hemoglobin 27.8 PG (26-34); Mean Corpuscular Volume 83.4 fL (80-100); Monocytes Absolute Auto 600 /uL (0-900); Monocytes Percent Auto 7.9 % (3-14); Neutrophils Absolute Auto 5100 /uL (1500-7000); Neutrophils Percent Auto 62.8 % (50-75); Platelet Count 149 X10^3/uL (150-400); Red Blood Cell Count 4.96 X10^6/uL (4.5-5.9); Red Cell Distribution Width 12.9 % (11.6-14.8); White Blood Cell Count 8.1 X10^3/uL (4.5-11.0)
--- NOTE | 2021-05-30 08:57 | DI.US.S_ITS ---
PROCEDURE: US RENAL COMPLETE INDICATIONS: ACUTE RENAL FAILURE TECHNIQUE: Real-time scanning was performed of the kidneys and bladder, with image documentation. COMPARISON: None. FINDINGS: Kidneys: Kidneys are normal in size. Right kidney measures 12.9 cm long; left kidney measures 12.6 cm long. Right renal cortical thickness is 2.0 cm; left renal cortical thickness is 1.5 cm. Renal cortical echotexture is normal. Bilateral renal cysts are noted, largest on the left measures 4.1 cm No hydronephrosis or nephrolithiasis. No suspicious solid mass lesions. Bladder: Nondistended Miscellaneous: No free pelvic fluid. IMPRESSION: Bilateral renal cysts. No hydronephrosis. Approved by: Arvind Caballero M.D. on 05/30/2021 at 9:34
[2021-05-30 09:06] LABS: Alanine Aminotransferase 22 IU/L (<50); Albumin 4.7 g/dL (3.5-5.0); Albumin Globulin Ratio 1.4 (1.0-2.8); Alkaline Phosphatase 59 U/L (38-126); Aspartate Aminotransferase 27 IU/L (17-59); BUN Creatinine Ratio 12.4 (6-22); Bilirubin Total 0.8 mg/dL (0.2-1.3); Blood Urea Nitrogen 18 mg/dL (9-20); Calcium 9.7 mg/dL (8.4-10.2); Carbon Dioxide 28 mmol/L (22-32); Chloride 100 mmol/L (98-107); Creatine Kinase 68 U/L (55-170); Estimated Glomerular Filt Rate 47.4 mL/min (>60); Globulin 3.4 g/dL (1.7-4.1); Glucose 184 mg/dL (80-110); HEMOLYSIS < 15 (0-50); Lipase 38 U/L (23-300); Magnesium 1.7 mg/dL (1.6-2.3); Potassium 4.7 mmol/L (3.4-5.1); Sodium 138 mmol/L (137-145); Total Protein 8.1 g/dL (6.3-8.2)
[2021-05-30 09:17] LABS: Troponin I 0.015 ng/mL (0.01-0.034)
[2021-05-30] MEDS: SODIUM CHLORIDE 0.9% 1,000 ML 1000 ML IV (09:37)
[2021-05-30 11:42] LABS: BUN Creatinine Ratio 12.9 (6-22); Blood Urea Nitrogen 18 mg/dL (9-20); Calcium 9.1 mg/dL (8.4-10.2); Carbon Dioxide 26 mmol/L (22-32); Chloride 102 mmol/L (98-107); Estimated Glomerular Filt Rate 49.8 mL/min (>60); Glucose 148 mg/dL (80-110); HEMOLYSIS < 15 (0-50); Potassium 4.6 mmol/L (3.4-5.1); Sodium 137 mmol/L (137-145)
[2021-05-30 11:45] LABS: Creatinine Urine Random 118.9 mg/dL; Sodium Urine Random 137 mmol/L (30-90)
[2021-05-30 12:03] LABS: Bacteria Urine None Seen; Culture Indicated Urine Cult Not Indicated; RBC Urine None Seen (0-5/HPF); Urine Comments Microscopic Normal; WBC Urine None Seen (0-5/HPF)
== END 2021-05-30 12:54 | disposition home or self-care (01) ==
PROVIDERS: Emergency Provider Emergency Medicine; Family Provider Family Medicine; PCP Family Medicine; Referring Provider Internal Medicine Cardiovascular Disease
DX: N17.9 Acute kidney failure, unspecified (principal)
CPT/HCPCS: 36415; 71045; 76770; 80048; 80053; 81003; 81015; 82550; 82570; 83690; 83735; 84300; 84484; 85025; 93005; 93010; 96360; 96361; 99284

== ENCOUNTER → 2022-10-03 12:41 | Outpatient (CLI) | payer MEDICARE, OTHER, SELFPAY ==
--- NOTE | 2022-10-03 | DI.ECHO.S_ITS ---
[facility] +---------+ [facility] +---------+ : : [address] [place] : : : : [id number] : : : : Phone: [phone]+ Echocardiogram Report + + :Name: MIRLANDE VANG Study Date: 10/03/2022 Height: 72 in : :[facility] ReadingLocation: Weight: 230 lb : : Gender: Male BSA: 2.3 m2 : :: 1945 Age: 77 yrs BP: 120/75 mmHg: :Reason For Study: ATHEROSCLEROTIC HEART DISEASE : :Ordering Physician: PAUL, : :JYOTI Performed By: Maranda Kaiser : :Referring: JYOTI PRESLEY : + + Interpretation Summary 1) Normal left ventricular size and systolic function (EF 60-65%). 2) There are no obvious focal wall motion abnormalities noted but poor endocardial definition reduces the sensitivity for the detection of such. 3) Normal right ventricular size with low normal function. 4) Mild aortic stenosis is present (valve area 2.1cm2, mean gradient 14mm Hg). 5) Compared to the Echo done 09/25/2021, no significant change. Procedure: A two-dimensional transthoracic echocardiogram with color flow and Doppler was performed. The study quality was technically difficult. Comparison is made with the echocardiogram of 09/25/2021. The patient was in sinus rhythm with heart rates between 71-88 bpm during the exam. Left Ventricle: The left ventricle is normal in size. Left ventricular wall thickness is borderline increased. The ejection fraction is estimated to be 60-65%. Left ventricular systolic function appears normal without focal wall motion abnormalities. Diastolic parameters suggest a relaxation abnormality of the left ventricle, consistent with probable normal filling pressures. Right Ventricle: The right ventricle is normal size. Right ventricular systolic function is at the lower limits of normal. Atria: The left atrium is moderately dilated. Right atrial size is normal. There is no Doppler evidence for an interatrial shunt. Mitral Valve: There is moderate mitral annular calcification. The mitral valve leaflets are slightly calcified. The mitral valve mean gradient is 3.0 mmHg. There is no mitral regurgitation noted. Aortic Valve: The aortic valve is mildly calcified. There is mild aortic stenosis. The peak aortic velocity is 2.4 m/sec. The aortic valve mean gradient is 14 mmHg. No aortic regurgitation is present. Tricuspid Valve: The tricuspid valve is normal in structure and function. There is trace tricuspid regurgitation. Pulmonary artery pressures cannot be estimated because of the lack of a measurable TR jet velocity. Pulmonic Valve: The pulmonic valve leaflets are thin and pliable; valve motion is normal. There is no pulmonic valvular regurgitation. Great Vessels: The aortic root is normal size. The dimensions of the ascending aorta are normal. The IVC is dilated (diameter is greater than 2.1 cm) yet it collapses greater than 50% with a sniff. This suggests a right atrial pressure of 8 mm Hg. Pericardium/ Pleura There is no pericardial effusion. There is no pleural effusion. MMode/2D Measurements & Calculations LVIDd: 4.6 cm LVOT diam: 2.2 cm LVIDs: 3.4 cm Ao root diam: 3.4 cm FS: 27.5 % asc Aorta Diam: 3.4 cm IVSd: 0.99 cm Ao Arch Diam (Prox Trans): 3.2 cm LVPWd: 1.00 cm LV moran. diameter/BSA (cm/m^2): 2.0 LV sys. diameter/BSA (cm/m^2): 1.5 LA A2 area: 26.2 cm2 RA long axis: 4.3 cm LA A4 area: 20.8 cm2 RA area: 14.0 cm2 LA length (vol): 5.8 cm RA vol: 38.4 ml LA vol: 79.5 ml RA : 17.0 ml/m2 LA vol index: 35.1 ml/m2 IVC diam: 2.2 cm RVD1 (basal): 3.6 cm TAPSE: 1.6 cm Doppler Measurements & Calculations Ao V2 max: 243.3 cm/sec LVOT Max Howard: 132.1 cm/sec Ao V2 mean: 168.3 cm/sec LV V1 max P.0 mmHg Ao max P.4 mmHg LV V1 VTI: 22.6 cm Ao mean P.7 mmHg CHLOE(I,D): 2.1 cm2 Ao V2 VTI: 41.7 cm CHLOE(V,D): 2.1 cm2 sev ratio: 0.54 CHLOE indexed to BSA (cm^2/m^2): 0.92 MV E max howard: 74.4 cm/sec PA V2 max: 101.7 cm/sec MV A max howard: 153.1 cm/sec PA V2 mean: 74.7 cm/sec MV E/A: 0.49 PA mean P.5 mmHg Med Peak E' Howard: 5.0 cm/sec PA pr(Accel): 19.1 mmHg E/E' med: 14.8 Lat Peak E' Howard: 6.6 cm/sec E/E' lat: 11.2 E/e' average: 13.0 MV dec time: 0.30 sec MVA(VTI): 2.4 cm2 MV V2 mean: 78.2 cm/sec SV(LVOT): 86.4 ml MV mean P.9 mmHg MV V2 VTI: 36.6 cm Reading Physician:04:24 PM
== END ==
PROVIDERS: Family Provider Family Medicine; PCP Family Medicine; Referring Provider Internal Medicine Cardiovascular Disease; Visit Provider Internal Medicine Cardiovascular Disease
DX: I35.0 Nonrheumatic aortic (valve) stenosis (principal); I25.10 Atherosclerotic heart disease of native coronary artery without angina pectoris; I34.81 Nonrheumatic mitral (valve) annulus calcification; Z95.5 Presence of coronary angioplasty implant and graft
CPT/HCPCS: C8929; Q9957

== ENCOUNTER → 2023-12-24 | Outpatient (CLI) | payer MEDICARE, OTHER, SELFPAY ==
--- NOTE | 2023-12-24 | DI.ECHO.S_ITS ---
[facility] [place] +---------+ Hospital : : [address] : : [place] : : [id number] : : Phone: [phone] Echocardiogram Report + + :Name: MIRLANDE VANG Study Date: 12/24/2023 Height: 72 in : :Hospital ReadingLocation: Weight: 225 lb : : Gender: Male BSA: 2.2 m2 : :: 1945 Age: 78 yrs BP: 128/80 mmHg: :Reason For Study: CORONARY ARTERY DISEASE, SHORTNESS OF BREATH : :Ordering Physician: GI, : :JULIANA Banda Performed By: Maranda Kaiser : :Referring: JULIANA MANLEY : + + Interpretation Summary The ejection fraction is estimated to be 60-65%. Diastolic function could not be accurately assessed due to unobtainable data. The left atrium is mildly dilated. The right ventricle is at the upper limits of normal in size. The right ventricular systolic function is normal. There is mild aortic stenosis. There is mild to moderate aortic regurgitation. Pulmonary artery pressures cannot be estimated because of the lack of a measurable TR jet velocity. Compared to the prior echo done 10/03/2022, the aortic regurgitation is new. Procedure: A two-dimensional transthoracic echocardiogram with color flow and Doppler was performed. The study quality was technically adequate. Comparison is made with the echocardiogram of 10/03/2022. The patient was in sinus rhythm with heart rates between 63-68 bpm during the exam. Left Ventricle: The left ventricle is normal in size and wall thickness. The ejection fraction is estimated to be 60-65%. Diastolic function could not be accurately assessed due to unobtainable data. Right Ventricle: The right ventricle is at the upper limits of normal in size. The right ventricular systolic function is normal. Atria: The left atrium is mildly dilated. Right atrial size is normal. There is no Doppler evidence for an interatrial shunt. Mitral Valve: There is severe mitral annular calcification. The mitral valve leaflets are mildly calcified. The mitral valve mean gradient is 3.3 mmHg. There is trace mitral regurgitation. Aortic Valve: The aortic valve is trileaflet. The aortic valve is moderately calcified. There is moderately reduced leaflet mobility. There is mild aortic stenosis. The peak aortic velocity is 2.7 m/sec. The aortic valve mean gradient is 18 mmHg. The calculated aortic valve area is 1.6 cm2. There is mild to moderate aortic regurgitation. Tricuspid Valve: The tricuspid valve is normal in structure and function. There is trace tricuspid regurgitation. Pulmonary artery pressures cannot be estimated because of the lack of a measurable TR jet velocity. Pulmonic Valve: The pulmonic valve leaflets are thin and pliable; valve motion is normal. There is no pulmonic valvular regurgitation. Great Vessels: The aortic root is normal size. The dimensions of the ascending aorta are normal. The IVC is of normal diameter and collapses greater than 50% with a sniff. This suggests a low right atrial pressure of 3 mm Hg. Pericardium/ Pleura There is no pericardial effusion. There is no pleural effusion. MMode/2D Measurements & Calculations LVIDd: 5.2 cm LVOT diam: 2.2 cm LVIDs: 3.4 cm Ao root diam: 3.4 cm FS: 35.6 % asc Aorta Diam: 3.6 cm IVSd: 1.0 cm Ao Arch Diam (Prox Trans): 2.3 cm LVPWd: 0.95 cm LV moran. diameter/BSA (cm/m^2): 2.3 LV sys. diameter/BSA (cm/m^2): 1.5 LA A2 area: 26.2 cm2 RA long axis: 5.1 cm LA A4 area: 23.7 cm2 RA area: 15.0 cm2 LA length (vol): 6.1 cm RA vol: 38.0 ml LA vol: 86.3 ml RA : 16.9 ml/m2 LA vol index: 38.6 ml/m2 IVC diam: 1.5 cm RVD1 (basal): 3.9 cm TAPSE: 1.6 cm Doppler Measurements & Calculations Ao V2 max: 269.3 cm/sec LVOT Max Howard: 112.0 cm/sec Ao V2 mean: 199.1 cm/sec LV V1 max P.0 mmHg Ao max P.9 mmHg LV V1 VTI: 24.6 cm Ao mean P.0 mmHg CHLOE(I,D): 1.6 cm2 Ao V2 VTI: 58.3 cm CHLOE(V,D): 1.6 cm2 sev ratio: 0.42 CHLOE indexed to BSA (cm^2/m^2): 0.71 AI P1/2t: 597.4 msec AI dec slope: 199.5 cm/sec2 Med Peak E' Howard: 5.2 cm/sec PA V2 max: 93.9 cm/sec Lat Peak E' Howard: 5.9 cm/sec PA V2 mean: 69.9 cm/sec MVA(VTI): 2.0 cm2 PA mean P.1 mmHg PA pr(Accel): 29.3 mmHg MV V2 mean: 80.1 cm/sec SV(LVOT): 93.0 ml MV mean P.3 mmHg MV V2 VTI: 47.2 cm Reading Physician:12:10 PM
== END ==
PROVIDERS: Family Provider Family Medicine; PCP Family Medicine; Referring Provider Internal Medicine Cardiovascular Disease; Visit Provider Internal Medicine Cardiovascular Disease
DX: I34.81 Nonrheumatic mitral (valve) annulus calcification; I35.2 Nonrheumatic aortic (valve) stenosis with insufficiency
CPT/HCPCS: 93306

== ENCOUNTER → 2023-12-31 | Outpatient (CLI) | payer MEDICARE, OTHER, SELFPAY ==
--- NOTE | 2023-12-31 17:50 | DI.NM.S_ITS ---
DATE OF SERVICE: 12/31/2023 PROCEDURE: Pharmacological perfusion study. INDICATIONS: Chest discomfort with known coronary artery disease, aortic stenosis. RADIOPHARMACEUTICAL: 24.8 millicurie technetium-99m Myoview IV was injected at stress and 11.5 millicurie technetium-99m Myoview IV was injected at rest. CARDIAC STRESS: The patient underwent IV Lexiscan perfusion study under the supervision of an attending staff using standard IV Lexiscan as per protocol. The patient remained hemodynamically stable. Baseline blood pressure 122/80. 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 During stress, no convincing new ischemic changes or arrhythmias. No chest discomfort. Minimal dyspnea. RAW DATA: There is increased subdiaphragmatic activity. The patient's weight is 230 pounds. GATED STUDY: Resting LV ejection fraction 66% and stress LV ejection fraction 69% without any obvious wall motion abnormalities. Resting end- diastolic volume 85 mL. TID ratio 1.02, which is within normal limits. MYOCARDIAL PERFUSION SCAN: Stress supine, resting supine and stress prone images were compared to each other. Stress supine images revealed small size, mildly decreased perfusion of inferior wall which got completely resolved during stress prone images suggestive of diaphragmatic tissue attenuation artifact. There is no ischemia or infarction pattern during stress prone images. CONCLUSION: I will call this study a normal myocardial perfusion study with evidence of diaphragmatic tissue attenuation artifact, which got resolved during stress prone images. The patient had a perfusion study in April 2021. At that time, also had similar perfusion findings. Preserved LV function. Overall, low-risk myocardial perfusion scan. Edilson Zapata - CHRIS/alpesh/WILL doc#: [id number]/job#: [id number] dd: 12/31/2023 16:57:00 dt: 12/31/2023 17:20:00 DICTATING MD/COPIES TO: [facility] MD COPIES MNE: ERLIN;
== END ==
PROVIDERS: Family Provider Family Medicine; PCP Family Medicine; Referring Provider Internal Medicine Cardiovascular Disease; Visit Provider Internal Medicine Cardiovascular Disease
DX: I25.10 Atherosclerotic heart disease of native coronary artery without angina pectoris (principal); R06.02 Shortness of breath
CPT/HCPCS: 78452; 93017; A9502; J2785

== ENCOUNTER → 2024-01-31 06:54 | Outpatient (CLI) | payer MEDICARE, OTHER, SELFPAY ==
--- NOTE | 2024-01-31 06:55 | DI.US.S_ITS ---
PROCEDURE: US ABD AORTA ANEURYSM SCREEN INDICATIONS: FORMER SMOKER TECHNIQUE: Real-time scanning was performed of the aorta and proximal common iliac arteries, with image documentation. COMPARISON: None. FINDINGS: Aorta: Proximal aorta nonvisualized. Mild plaque is seen in the mid aorta. Questionable posterior wall thrombus versus artifact is seen posterior to the aorta measuring approximately 3.5 x 2.4 x 3.2 cm. Iliacs: Proximal common iliac arteries are normal in caliber with mild plaque present. IMPRESSION: Limited study due to bowel gas; possible ectasia of the distal aorta. If indicated, CT may provide additional diagnostic benefit. Dictated by: Suman Upton M.D. on 01/31/2024 at 12:16 Approved by: Suman Upton M.D. on 01/31/2024 at 12:20
== END ==
LOC: US 06:55
PROVIDERS: Family Provider Family Medicine; PCP Family Medicine; Referring Provider Internal Medicine Cardiovascular Disease; Visit Provider Internal Medicine Cardiovascular Disease
DX: Z13.6 Encounter for screening for cardiovascular disorders (principal); Z87.891 Personal history of nicotine dependence
CPT/HCPCS: 76706

== ENCOUNTER → 2024-06-04 09:00 | Outpatient (CLI) | payer MEDICARE, OTHER, SELFPAY ==
--- NOTE | 2024-06-04 09:01 | DI.US.S_ITS ---
PROCEDURE: US RETRO PERITONEAL LIMITED INDICATIONS: FORMER SMOKER. F/U DISTAL ECTASIA W/POSSIBLE THROMBUS TECHNIQUE: Real time scanning was performed of the aorta and iliac arteries, with image documentation. COMPARISON: [facility], , US ABD AORTA ANEURYSM SCREEN, 01/31/2024, 7:14. FINDINGS: Aorta: Proximal aortic diameter measures 3.1 x 2.8 cm. Mid-aorta measures 2.4 cm. Distal aortic diameter is 2.1 cm. Peripheral, hypoechoic plaque in the distal aorta . Iliac arteries: Right common iliac artery measures 1.5 cm. Left common iliac artery measures 1.7 cm. 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 Recommend follow-up in 3 years. Stable noncalcified plaque along the posterior margin of the distal aorta. Dictated by: Scotty El M.D. on 06/05/2024 at 9:23 Approved by: Scotty El M.D. on 06/05/2024 at 9:25
== END ==
PROVIDERS: Family Provider Family Medicine; PCP Family Medicine; Referring Provider Internal Medicine Cardiovascular Disease; Visit Provider Internal Medicine Cardiovascular Disease
DX: I71.41 Pararenal abdominal aortic aneurysm, without rupture (principal); I70.0 Atherosclerosis of aorta; Z87.891 Personal history of nicotine dependence
CPT/HCPCS: 76775

== ENCOUNTER → 2024-10-02 09:13 | Outpatient (CLI) | payer MEDICARE, OTHER, SELFPAY ==
--- NOTE | 2024-10-02 09:15 | DI.US.S_ITS ---
PROCEDURE: US RENAL COMPLETE INDICATIONS: CKG STAGE TECHNIQUE: Real-time scanning was performed of the kidneys and bladder, with image documentation. COMPARISON: [facility], , US RENAL COMPLETE, 05/30/2021, 9:27. FINDINGS: Kidneys: Kidneys are normal in size. Right kidney measures 12.0 cm long; left kidney measures 12.3 cm long. Right renal cortical thickness is 1.3 cm; left renal cortical thickness is 2.2 cm. Renal cortical echotexture is normal. No hydronephrosis or nephrolithiasis. No suspicious solid mass lesions. Bilateral simple renal cysts and parapelvic cysts, largest on the right measures 2.1 cm, largest cyst on the left measures 4.5 cm. Bladder: Pre-void bladder volume is 166 mL. Post-void residual is 28 mL. Pre- void images demonstrate no intraluminal masses or stones. On pre-void images, bilateral ureteral jets are noted with color Doppler interrogation. (Of note, ureteral jets may not be detectable in up to 25% of cases due to insufficient differences in specific gravity between ureteral and bladder urine). Miscellaneous: No free pelvic fluid. IMPRESSION: Simple renal cysts as described above. No hydronephrosis. Dictated by: Christiano Barrow M.D. on 10/02/2024 at 16:03 Approved by: Christiano Barrow M.D. on 10/02/2024 at 16:15
== END ==
LOC: US 09:14
PROVIDERS: Family Provider Family Medicine; PCP Family Medicine; Referring Provider Internal Medicine Nephrology; Visit Provider Internal Medicine Nephrology
DX: N18.31 Chronic kidney disease, stage 3a (principal); N28.1 Cyst of kidney, acquired
CPT/HCPCS: 76770

== ENCOUNTER → 2024-12-24 07:43 | Outpatient (CLI) | payer MEDICARE, OTHER, SELFPAY ==
--- NOTE | 2024-12-24 07:45 | DI.ECHO.S_ITS ---
[facility] +---------+ [facility] : : [address] : : [place] : : [id number] : : Phone: [phone] Echocardiogram Report + + :Name: MIRLANDE VANG Study Date: 12/24/2024 Height: 72 in : :[facility] ReadingLocation: Weight: 216 lb : : Gender: Male BSA: 2.2 m2 : :: 1945 Age: 79 yrs BP: 149/76 mmHg: :Reason For Study: AORTIC VALVE STENOSIS : :Ordering Physician: GI, : :JULIANA Banda Performed By: Thompson Dial : :Referring: JULIANA MANLEY : + + Interpretation Summary Left ventricular wall thickness is mildly increased. The ejection fraction is estimated to be 60-65%. Diastolic function could not be accurately assessed due to confounding valvular disease. The left atrium is mildly dilated. The right ventricle is grossly normal size. The right ventricular systolic function is normal. There is mild mitral stenosis. There is severe mitral annular calcification. There is moderate aortic stenosis. There is mild aortic regurgitation. Pulmonary artery pressures cannot be estimated because of the lack of a measurable TR jet velocity but the IVC suggests a CVP of around 3 mmHg. Compared to the prior study 12/24/2023, the gradients across the aortic and mitral valves have increased. Procedure: A two-dimensional transthoracic echocardiogram with color flow and Doppler was performed. The study quality was technically adequate. Comparison is made with the echocardiogram of 12/24/2023. The patient was in normal sinus rhythm during the exam. Left Ventricle: The left ventricle is normal in size. Left ventricular wall thickness is mildly increased. There is no ventricular septal defect visualized. The ejection fraction is estimated to be 60-65%. There are no focal wall motion abnormalities. Diastolic function could not be accurately assessed due to confounding valvular disease. Right Ventricle: The right ventricle is grossly normal size. The right ventricular systolic function is normal. Atria: The left atrium is mildly dilated. Right atrial size is normal. There is no Doppler evidence for an interatrial shunt. Mitral Valve: There is severe mitral annular calcification. The mitral valve leaflets are mildly calcified. The mitral valve mean gradient is 3.7 mmHg. There is mild mitral stenosis. There is trace mitral regurgitation. Aortic Valve: The aortic valve is trileaflet. The aortic valve is moderately calcified. There is moderately reduced leaflet mobility. There is moderate aortic stenosis. The peak aortic velocity is 3.0 m/sec. The aortic valve mean gradient is 23 mmHg. There is mild aortic regurgitation. Tricuspid Valve: The tricuspid valve is not well visualized, but is grossly normal. There is a trace or physiologic amount of tricuspid regurgitation. Pulmonary artery pressures cannot be estimated because of the lack of a measurable TR jet velocity but the IVC suggests a CVP of around 3 mmHg. Pulmonic Valve: The pulmonic valve is not well visualized. There is no pulmonic valvular regurgitation. Great Vessels: The aortic root is normal size. The dimensions of the ascending aorta are normal. The pulmonary artery is normal size. The IVC is of normal diameter and collapses greater than 50% with a sniff. This suggests a low right atrial pressure of 3 mm Hg. Pericardium/ Pleura There is no pericardial effusion. There is no pleural effusion. MMode/2D Measurements & Calculations LVIDd: 5.7 cm LVOT diam: 2.1 cm LVIDs: 3.9 cm Ao root diam: 3.6 cm FS: 31.9 % asc Aorta Diam: 3.5 cm EPSS: 1.4 cm IVSd: 1.3 cm LVPWd: 1.2 cm LV moran. diameter/BSA (cm/m^2): 2.6 LV sys. diameter/BSA (cm/m^2): 1.8 LA A2 area: 23.6 cm2 RA long axis: 4.4 cm LA A4 area: 27.0 cm2 RA area: 12.6 cm2 LA length (vol): 6.5 cm RA vol: 30.8 ml LA vol: 83.1 ml RA : 14.0 ml/m2 LA vol index: 37.8 ml/m2 IVC diam: 1.8 cm RVD1 (basal): 3.2 cm RVD2 (mid): 2.3 cm TAPSE: 2.8 cm Doppler Measurements & Calculations Ao V2 max: 299.3 cm/sec LVOT Max Howard: 122.2 cm/sec Ao V2 mean: 230.7 cm/sec LV V1 max P.0 mmHg Ao max P.8 mmHg LV V1 VTI: 26.0 cm Ao mean P.3 mmHg CHLOE(I,D): 1.3 cm2 Ao V2 VTI: 70.2 cm CHLOE(V,D): 1.5 cm2 sev ratio: 0.37 CHLOE indexed to BSA (cm^2/m^2): 0.60 MV E max howard: 95.0 cm/sec PA V2 max: 108.8 cm/sec MV A max howard: 144.9 cm/sec PA V2 mean: 77.9 cm/sec MV E/A: 0.66 PA mean P.7 mmHg Med Peak E' Howard: 4.6 cm/sec PA pr(Accel): 44.7 mmHg E/E' med: 20.6 Lat Peak E' Howard: 7.2 cm/sec E/E' lat: 13.2 E/e' average: 16.9 MV dec time: 0.34 sec MVA(VTI): 1.9 cm2 MV V2 mean: 87.8 cm/sec SV(LVOT): 92.4 ml MV mean P.7 mmHg MV V2 VTI: 48.1 cm Reading Physician:01:01 PM
== END ==
LOC: ECHO 07:44
PROVIDERS: Family Provider Family Medicine; PCP Family Medicine; Referring Provider Internal Medicine Cardiovascular Disease; Visit Provider Internal Medicine Cardiovascular Disease
DX: I08.0 Rheumatic disorders of both mitral and aortic valves (principal)
CPT/HCPCS: 93306